=== PATIENT | female | born 1955 | race Asian ===

== ENCOUNTER 2016-11-26 07:47 | Day surgery (SDC) | payer OTHER ==
[2016-11-26 08:42] VITALS: BMI 24.9
[2016-11-26] MEDS ORDERED: LIDOCAINE HCL/PF 2% SDV 5ML VIAL ONE (08:45)
[2016-11-26] MEDS ORDERED: PROPOFOL 20 ML ONE ×2 (08:45)
[2016-11-26 09:27] VITALS: TEMP 97.5
[2016-11-26 09:51] VITALS: PULSE 56
[2016-11-26 11:35] VITALS: BP 114/62
--- NOTE | 2016-11-27 13:40 | PATH ---
Surgical Pathology Report Patient Name: EWA HORNER [facility]. Rec. #: [id number] /Age/Gender: 1955 (Age: 61) / F Account: [id number] Location: [facility]-ENDOSCOPY Taken: 11/26/2016 Received: 11/26/2016 Reported: 11/27/2016 Physicians: Carlos Urias M.D. Specimen(s) Received A: BX 2ND PORTION OF DUODENUM & BULB B: BX GASTRIC ANTRUM C: BX GASTRIC FUNDUS POLYPS Clinical History Abdominal pain Antral gastritis, gastric fundic polyps Final Diagnosis A. DUODENUM, SECOND PORTION AND BULB, BIOPSY: DUODENAL MUCOSA WITH MILD CHRONIC INFLAMMATION AND ISAIAH'S GLANDS HYPERPLASIA. NO HISTOLOGIC EVIDENCE OF GLUTEN SENSITIVE ENTEROPATHY (CELIAC DISEASE). B. STOMACH, ANTRUM, BIOPSY: GASTRIC ANTRAL MUCOSA WITH MODERATE CHRONIC GASTRITIS AND REACTIVE GASTROPATHY. IMMUNOSTAIN FOR H. PYLORI IS NEGATIVE FOR ORGANISMS. C. STOMACH, FUNDIC POLYPS, BIOPSY: POLYPOID FRAGMENTS OF GASTRIC OXYNTIC MUCOSA WITH MODERATE CHRONIC GASTRITIS AND FOCAL SURFACE HYPERPLASTIC CHANGE. NEGATIVE FOR DYSPLASIA. IMMUNOSTAIN FOR H. PYLORI IS NEGATIVE FOR ORGANISMS. Electronically Signed Michele Rubalcava M.D. Gross Description A. Received in formalin, labeled "biopsy second portion of duodenum and bulb" are 4 dunne, irregular portions of soft tissue ranging from 0.2-0.5 cm in greatest dimension. The specimens are submitted in toto in one cassette. B. Received in formalin, labeled "biopsy gastric antrum" are 2 dunne, irregular portions of soft tissue averaging 0.3 cm min greatest dimension. The specimens are submitted in toto in one cassette. C. Received in formalin, labeled "biopsy gastric fundus polyp" is a dunne, irregular portion of soft tissue measuring 0.4 cm in greatest dimension. The specimen is submitted in toto in one cassette. 11/26/201611/26/2016
== END 2016-11-26 11:00 | disposition home or self-care (01) ==
LOC: JASU-ENDO 07:47
PROVIDERS: ATTEND Internal Medicine Gastroenterology
PROC: 0DBL8ZX Excision of Transverse Colon, Via Natural or Artificial Opening Endoscopic, Diagnostic (ICD-10-PCS; principal; 2016-11-26 09:00)
DX: Z12.11 Encounter for screening for malignant neoplasm of colon (principal); Z80.0 Family history of malignant neoplasm of digestive organs; D12.3 Benign neoplasm of transverse colon; K57.30 Diverticulosis of large intestine without perforation or abscess without bleeding
CPT/HCPCS: 88305-TC; 88342-TC

== ENCOUNTER 2019-02-12 07:36 | Emergency (ER) | payer OTHER | END 2019-02-12 10:47 | disposition home or self-care (01) | LOC: JER 07:36 ==

== ENCOUNTER 2022-10-26 22:07 | Emergency (ER) | payer OTHER ==
[2022-10-26 22:15] VITALS: BP 139/68; PULSE 63; RESP 18; TEMP 98.2; BMI 25.9
[2022-10-26] MEDS ORDERED: DIPHTH,PERTUSS(ACELL),TET 0.5 ML DISP.SYRIN IM ONE ×2 (22:33→22:36)
== END 2022-10-26 23:09 | disposition home or self-care (01) ==
LOC: JERFT 22:07
PROC: 3E0234Z Introduction of Serum, Toxoid and Vaccine into Muscle, Percutaneous Approach (ICD-10-PCS; principal; 2022-10-26)
DX: S41.151A Open bite of right upper arm, initial encounter (principal); W54.0XXA Bitten by dog, initial encounter; Z23 Encounter for immunization
CPT/HCPCS: 90471; 90715; 99282-25